=== PATIENT | female | born 1980 | race Caucasian/White ===

== ENCOUNTER 2016-11-26 12:05 | Emergency (ER) | payer MEDICAID, OTHER ==
[~2016-11-26 12:05] MED LIST: ANTIBIOTIC PO; COLA100C PO; HYDR-3713 PO; KLON0.5T PO; PERCOCET PO; TYLE325T5 PO
[2016-11-26] MEDS ORDERED: KETOROLAC 30 MG/ML VIAL (J1885) As Ordered ONE (13:37)
--- NOTE | 2016-11-26 14:55 | REP ---
THORACIC SPINE SERIES: Three views. HISTORY: Bony tenderness. FINDINGS: Thoracic vertebral body heights are preserved. Alignment is normal. No fracture or collapse is seen. Disc spaces are maintained. Paravertebral soft tissues are unremarkable. IMPRESSION: Negative thoracic spine series. Signed by Duglas Kim MD 11/26/2016 03:10 P
--- NOTE | 2016-11-26 14:55 | REP ---
RIGHT SHOULDER: Three views. HISTORY: Bony tenderness. FINDINGS: Three views of the right shoulder demonstrate normal alignment of the glenohumeral and acromioclavicular joints. No fracture or subluxation is seen. IMPRESSION: Negative right shoulder views. Signed by Duglas Kim MD 11/26/2016 03:10 P
--- NOTE | 2016-11-26 15:04 | EDDOCDS ---
Physician Documentation [facility] Name: Ifeoma Cuellar Age: 36 yrs Sex: Female : 1980 Arrival Date: 11/26/2016 Time: 12:05 Bed PR Private MD: Unknown, Family Dr Disposition: 11/26/16 14:38 Discharged to Home/Self Care. Impression: Dorsalgia - Acute, Unspecified sprain of right shoulder joint. - Condition is Stable. - Discharge Instructions: Shoulder Pain, Wirw-pe-Uyxc, Back Pain, Adult, Fsfl-vy-[id number]. - Prescriptions for Mobic 7.5 mg Oral Tablet - take 1 tablet by ORAL route once daily take with food; 20 tablet. Prednisone 20 mg Oral Tablet - take 3 tablet by ORAL route once daily for 5 days; 15 tablet. Zanaflex 4 mg Oral Tablet - take 1 tablet by ORAL route At bedtime As needed May cause drowsiness, do not take while driving/operating heavy machinery.; 20 tablet. - Medication Reconciliation, Local Pharmacy Hours, Referral List Call for Appointment form. - Follow up: [facility]; When: Call to arrange an appointment; Reason: Further diagnostic work-up, Recheck today's complaints, Continuance of care. - Problem is new. - Symptoms have improved. Historical: - Allergies: no known allergies; - Home Meds: 1. none - PMHx: Kidney stones; - PSHx: Ureteral Stents (September 02, 2014); Lithotripsy (September 02, 2014); D & C(June 2015); - Social history: Smoking status: Patient states was never smoker of tobacco. No barriers to communication noted, The patient speaks fluent Gibraltarian, Speaks appropriately for age. - Family history: Not pertinent. - : The pt / caregiver states he / she is not on anticoagulants. Home medication list is obtained from the patient. - Exposure Risk Screening:: None identified. 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 5 in. (165.10 cm) (R); Pain 6/10; 14:34 Pain 5/10; jf3 15:00 BP 123 / 69; Pulse 65; Resp 16; Temp 98.2(O); Pulse Ox 97% on R/A; Pain 5/10; jf3 12:06 Body Mass Index 26.63 (72.57 kg, 165.10 cm) rs6 MDM: 13:33 ketorolac 60 mg IM once ordered. ef1 13:33 Ice Pack ordered. ef1 13:34 Spine, Thoracic 3 Views Ordered. EDMS 13:34 Shoulder, Complete Ordered. EDMS 13:37 Financial registration complete. lg 13:58 [facility] Payment Agreement was scanned into [employer] and attached to record. lg Administered Medications: 13:42 Drug: ketorolac 60 mg [ketorolac 30 mg/mL (1 mL) injection solution (2 mL)] Route: IM; jf3 Site: right gluteus; 14:34 Follow up: Pain 5/10 Adult; Response: Pain is decreased jf3 Signatures: Dispatcher [employer] EDMS Kiley Miller, RN RN srm Pio Cheung, Reg Reg lg Katrin Orozco, PAAspen PAAspen ef1 Nasir Hemphill RN RN jf3 The chart was reviewed and I authenticate all verbal orders and agree with the evaluation and treatment provided.Attachments: 13:58 [facility] Payment Agreement lg MTDD
--- NOTE | 2016-11-26 15:04 | EDDOCDS ---
Nurse's Notes [facility] Name: Ifeoma Cuellar Age: 36 yrs Sex: Female : 1980 Arrival Date: 11/26/2016 Time: 12:05 Bed PR Private MD: Unknown, Family Dr Diagnosis: Dorsalgia-Acute;Unspecified sprain of right shoulder joint Presentation: 11/26 12:18 Presenting complaint: Patient states: neck and shoulder pain for months. bilateral neck srm pain. numbness to left arm but pain to right. symptoms for minths. Risk Factors No acute neurological deficit is noted. Adult Sepsis Screening: The patient does not have new or worsening altered mentation. Patient's respiratory rate is less than 22. Systolic blood pressure is greater than 100. Patient has a qSOFA score of 0- Negative Sepsis Screen. Suicide/Homicide risk assessment- the patient denies having any suicidal and/or homicidal ideations and does not present with any other emotional, behavioral or mental health complaints. Status: Patient is not a breeder hen service technician or dependent. Transition of care: patient was not received from another setting of care. 12:18 Acuity: DAYA Level 4 srm 12:18 Method Of Arrival: Walkin/Carried/Asstd srm Triage Assessment: 12:20 General: Appears in no apparent distress, Behavior is appropriate for age, cooperative. srm Pain: Pain currently is 7 out of 10 on a pain scale. HIV screening NA for this visit Offered previously. Musculoskeletal: Reports bilateral neck pain. 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 none - PMHx: Kidney stones; - PSHx: Ureteral Stents (September 02, 2014); Lithotripsy (September 02, 2014); D & C(June 2015); - Social history: Smoking status: Patient states was never smoker of tobacco. No barriers to communication noted, The patient speaks fluent Hebrew, Speaks appropriately for age. - Family history: Not pertinent. - : The pt / caregiver states he / she is not on anticoagulants. Home medication list is obtained from the patient. - Exposure Risk Screening:: None identified. Screenin:05 Screening information is obtained from the patient. Fall risk: No risks identified. jf3 Assistance ADL's: requires no assistance with activities of daily living. Abuse/DV Screen: The patient / caregiver reports he/she is: not in a situation that causes fear, pain or injury. Nutritional screening: No deficits noted. Advance Directives: Currently, there is no health care proxy. There is no active DNR order. home support is adequate. Assessment: 13:05 General: Appears in no apparent distress, comfortable, Behavior is cooperative. jf3 General: pt states pain in right shoulder for approx 2 months. woke up today, stretched arms and felt large pop in left shoulder and is now limited in movement of left shoulder and neck. Pain: Location: left shoulder, right shoulder, right neck Pain currently is 7 out of 10 on a pain scale. Quality of pain is described as aching, pulling. Neurological: Level of Consciousness is awake, alert, Oriented to person, place, time. Neurological: Reports occasional numbness in right arm and hand, denies any at this time. Cardiovascular: Capillary refill < 3 seconds Chest pain is denied. Respiratory: Airway is patent Respiratory effort is even, unlabored, Respiratory pattern is regular, symmetrical, Denies shortness of breath at rest. Derm: Skin is pink, warm & dry. 15:00 General: Appears in no apparent distress, comfortable, Behavior is cooperative. Pain: jf3 Pain currently is 5 out of 10 on a pain scale. Neurological: Level of Consciousness is awake, alert, Oriented to person, place, time. Cardiovascular: Capillary refill < 3 seconds Chest pain is denied. Respiratory: Airway is patent Respiratory effort is even, unlabored, Respiratory pattern is regular, symmetrical. Derm: Skin is pink, warm & dry. Vital Signs: 12:06 BP 109 / 66 RA Sitting (auto/reg); Pulse 74; Resp 16; Temp 98.6(O); Pulse Ox 99% on rs6 R/A; Weight 72.57 kg (R); Height 5 ft. 5 in. (165.10 cm) (R); Pain 6/10; 14:34 Pain 5/10; jf3 15:00 BP 123 / 69; Pulse 65; Resp 16; Temp 98.2(O); Pulse Ox 97% on R/A; Pain 5/10; jf3 12:06 Body Mass Index 26.63 (72.57 kg, 165.10 cm) rs6 Vitals: 12:06 Log In Time: November 26, 2016 at 12:06. rs6 ED Course: 12:06 Patient visited by Alicia Colón PCA. rs6 12:06 Unknown, Family is Private Physician. rs6 12:06 Patient moved to Waiting rs6 12:07 Patient visited by Alicia Colón PCA. rs6 12:07 Patient moved to Pre RCE rs6 12:19 Triage Initiated srm 13:05 Patient moved to Triage 2 jf3 13:05 The patient / caregiver is instructed regarding the plan of care and ED course. jf3 13:09 Patient visited by Nasir Hemphill RN. jf3 13:14 Katrin Orozco PA-C is PHCP. ef1 13:14 Elyse Valentin MD is Attending Physician. ef1 13:26 Patient visited by Katrin Orozco PA-C. ef1 13:42 Patient moved to TR2 jf3 13:58 [facility] Payment Agreement was scanned into [employer] and attached to record. lg 14:05 Patient visited by Katrin Orozco PA-C. ef1 14:36 Patient visited by Katrin Orozco PA-C. ef1 14:38 [facility]. ef1 14:48 Patient moved to PR1 / 25 kr3 15:00 No IV's were initiated during this patient's visit. No procedures done that require jf3 assistance. Administered Medications: 13:42 Drug: ketorolac 60 mg [ketorolac 30 mg/mL (1 mL) injection solution (2 mL)] Route: IM; jf3 Site: right gluteus; 14:34 Follow up: Pain 5/10 Adult; Response: Pain is decreased jf3 Order Results: There are currently no results for this order. Outcome: 14:38 Discharge ordered by Provider. ef1 15:03 Discharge Assessment: Patient awake, alert and oriented x 3. No cognitive and/or jf3 functional deficits noted. Patient verbalized understanding of disposition instructions. patient administered narcotics - no. The following High Risk Discharge criteria are identified: None. Discharged to home ambulatory, with significant other. Condition: good. Discharge instructions given to patient, significant other, Instructed on discharge instructions, follow up and referral plans. medication usage, no driving heavy equipment, Demonstrated understanding of instructions, medications, Pt was receptive of discharge instructions/ teaching. No special radiology studies were completed. Property :Personal belongings accompany Pt. 15:03 Patient left the ED. jf3 Signatures: Kiley Miller, RN RN Pio Rhodes, [facility] lg Carol Rich,RN RN kr3 Katrin Orozco, PA-C PA-C ef1 Alicia Colón, LEGAL PRACTICE MANAGER LEGAL PRACTICE MANAGER rs6 Nasir Hemphill,VIVIAN RN jf3 MTDD
--- NOTE | 2016-11-28 16:05 | EDDOCDS ---
Physician Documentation [facility] Name: Ifeoma Cuellar Age: 36 yrs Sex: Female : 1980 Arrival Date: 11/26/2016 Time: 12:05 Bed PR Private MD: Unknown, Family Dr Disposition: 11/26/16 14:38 Discharged to Home/Self Care. Impression: Dorsalgia - Acute, Unspecified sprain of right shoulder joint. - Condition is Stable. - Discharge Instructions: Shoulder Pain, [id number]-Fkfw, Back Pain, Adult, Azls-hf-Alnm. - Prescriptions for Mobic 7.5 mg Oral Tablet - take 1 tablet by ORAL route once daily take with food; 20 tablet. Prednisone 20 mg Oral Tablet - take 3 tablet by ORAL route once daily for 5 days; 15 tablet. Zanaflex 4 mg Oral Tablet - take 1 tablet by ORAL route At bedtime As needed May cause drowsiness, do not take while driving/operating heavy machinery.; 20 tablet. - Medication Reconciliation, Local Pharmacy Hours, Referral List Call for Appointment form. - Follow up: [facility]; When: Call to arrange an appointment; Reason: Further diagnostic work-up, Recheck today's complaints, Continuance of care. - Problem is new. - Symptoms have improved. Historical: - Allergies: no known allergies; - Home Meds: 1. none - PMHx: Kidney stones; - PSHx: Ureteral Stents (September 02, 2014); Lithotripsy (September 02, 2014); D & C(June 2015); - Social history: Smoking status: Patient states was never smoker of tobacco. No barriers to communication noted, The patient speaks fluent Ugandan, Speaks appropriately for age. - Family history: Not pertinent. - : The pt / caregiver states he / she is not on anticoagulants. Home medication list is obtained from the patient. - Exposure Risk Screening:: None identified. 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 5 in. (165.10 cm) (R); Pain 6/10; 14:34 Pain 5/10; jf3 15:00 BP 123 / 69; Pulse 65; Resp 16; Temp 98.2(O); Pulse Ox 97% on R/A; Pain 5/10; jf3 12:06 Body Mass Index 26.63 (72.57 kg, 165.10 cm) rs6 MDM: 13:33 ketorolac 60 mg IM once ordered. ef1 13:33 Ice Pack ordered. ef1 13:34 Spine, Thoracic 3 Views Ordered. EDMS 13:34 Shoulder, Complete Ordered. EDMS 13:37 Financial registration complete. lg 13:58 [facility] Payment Agreement was scanned into [employer] and attached to record. lg 15:51 T-Sheet-- Draft Copy was scanned into [employer] and attached to record. gb 15:51 Radiology Report was scanned into [employer] and attached to record. gb Administered Medications: 13:42 Drug: ketorolac 60 mg [ketorolac 30 mg/mL (1 mL) injection solution (2 mL)] Route: IM; jf3 Site: right gluteus; 14:34 Follow up: Pain 5/10 Adult; Response: Pain is decreased jf3 Signatures: Dispatcher [employer] EDMS Kiley Miller, VIVIAN [place] srm Suzi Huerta, Reg Reg gb Pio Cheung, Reg Reg lg Katrin Orozco, PA-C PA-C ef1 Nasir Hemphill,VIVIAN RN jf3 The chart was reviewed and I authenticate all verbal orders and agree with the evaluation and treatment provided.Attachments: 13:58 [facility] Payment Agreement lg 15:51 T-Sheet-- Draft Copy gb Chart Complete MTDD
--- NOTE | 2016-11-28 16:05 | EDDOCDS ---
Nurse's Notes [facility] Name: Ifeoma Cuellar Age: 36 yrs Sex: Female : 1980 Arrival Date: 11/26/2016 Time: 12:05 Bed PR Private MD: Unknown, Family Dr Diagnosis: Dorsalgia-Acute;Unspecified sprain of right shoulder joint Presentation: 11/26 12:18 Presenting complaint: Patient states: neck and shoulder pain for months. bilateral neck srm pain. numbness to left arm but pain to right. symptoms for minths. Risk Factors No acute neurological deficit is noted. Adult Sepsis Screening: The patient does not have new or worsening altered mentation. Patient's respiratory rate is less than 22. Systolic blood pressure is greater than 100. Patient has a qSOFA score of 0- Negative Sepsis Screen. Suicide/Homicide risk assessment- the patient denies having any suicidal and/or homicidal ideations and does not present with any other emotional, behavioral or mental health complaints. 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 Transition of care: patient was not received from another setting of care. 12:18 Acuity: DAYA Level 4 srm 12:18 Method Of Arrival: Walkin/Carried/Asstd srm Triage Assessment: 12:20 General: Appears in no apparent distress, Behavior is appropriate for age, cooperative. srm Pain: Pain currently is 7 out of 10 on a pain scale. HIV screening NA for this visit Offered previously. Musculoskeletal: Reports bilateral neck pain. 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 none - PMHx: Kidney stones; - PSHx: Ureteral Stents (September 02, 2014); Lithotripsy (September 02, 2014); D & C(June 2015); - Social history: Smoking status: Patient states was never smoker of tobacco. No barriers to communication noted, The patient speaks fluent Hungarian, Speaks appropriately for age. - Family history: Not pertinent. - : The pt / caregiver states he / she is not on anticoagulants. Home medication list is obtained from the patient. - Exposure Risk Screening:: None identified. Screenin:05 Screening information is obtained from the patient. Fall risk: No risks identified. jf3 Assistance ADL's: requires no assistance with activities of daily living. Abuse/DV Screen: The patient / caregiver reports he/she is: not in a situation that causes fear, pain or injury. Nutritional screening: No deficits noted. Advance Directives: Currently, there is no health care proxy. There is no active DNR order. home support is adequate. Assessment: 13:05 General: Appears in no apparent distress, comfortable, Behavior is cooperative. jf3 General: pt states pain in right shoulder for approx 2 months. woke up today, stretched arms and felt large pop in left shoulder and is now limited in movement of left shoulder and neck. Pain: Location: left shoulder, right shoulder, right neck Pain currently is 7 out of 10 on a pain scale. Quality of pain is described as aching, pulling. Neurological: Level of Consciousness is awake, alert, Oriented to person, place, time. Neurological: Reports occasional numbness in right arm and hand, denies any at this time. Cardiovascular: Capillary refill < 3 seconds Chest pain is denied. Respiratory: Airway is patent Respiratory effort is even, unlabored, Respiratory pattern is regular, symmetrical, Denies shortness of breath at rest. Derm: Skin is pink, warm & dry. 15:00 General: Appears in no apparent distress, comfortable, Behavior is cooperative. Pain: jf3 Pain currently is 5 out of 10 on a pain scale. Neurological: Level of Consciousness is awake, alert, Oriented to person, place, time. Cardiovascular: Capillary refill < 3 seconds Chest pain is denied. Respiratory: Airway is patent Respiratory effort is even, unlabored, Respiratory pattern is regular, symmetrical. Derm: Skin is pink, warm & dry. Vital Signs: 12:06 BP 109 / 66 RA Sitting (auto/reg); Pulse 74; Resp 16; Temp 98.6(O); Pulse Ox 99% on rs6 R/A; Weight 72.57 kg (R); Height 5 ft. 5 in. (165.10 cm) (R); Pain 6/10; 14:34 Pain 5/10; jf3 15:00 BP 123 / 69; Pulse 65; Resp 16; Temp 98.2(O); Pulse Ox 97% on R/A; Pain 5/10; jf3 12:06 Body Mass Index 26.63 (72.57 kg, 165.10 cm) rs6 Vitals: 12:06 Log In Time: November 26, 2016 at 12:06. rs6 ED Course: 12:06 Patient visited by Alicia Colón PCA. rs6 12:06 Unknown, Family is Private Physician. rs6 12:06 Patient moved to Waiting rs6 12:07 Patient visited by Alicia Colón PCA. rs6 12:07 Patient moved to Pre RCE rs6 12:19 Triage Initiated srm 13:05 Patient moved to Triage 2 jf3 13:05 The patient / caregiver is instructed regarding the plan of care and ED course. jf3 13:09 Patient visited by Nasir Hemphill RN. jf3 13:14 Katrin Orozco PA-C is PHCP. ef1 13:14 Elyse Valentin MD is Attending Physician. ef1 13:26 Patient visited by Katrin Orozco PA-C. ef1 13:42 Patient moved to TR2 jf3 13:58 [facility] Payment Agreement was scanned into [employer] and attached to record. lg 14:05 Patient visited by Katrin Orozco PA-C. ef1 14:36 Patient visited by Katrin Orozco PA-C. ef1 14:38 [facility]. ef1 14:48 Patient moved to PR1 / 25 kr3 15:00 No IV's were initiated during this patient's visit. No procedures done that require jf3 assistance. 15:25 Spine, Thoracic 3 Views Returned. EDMS 15:25 Shoulder, Complete Returned. EDMS 15:51 T-Sheet-- Draft Copy was scanned into [employer] and attached to record. gb 15:51 Radiology Report was scanned into [employer] and attached to record. gb Administered Medications: 13:42 Drug: ketorolac 60 mg [ketorolac 30 mg/mL (1 mL) injection solution (2 mL)] Route: IM; jf3 Site: right gluteus; 14:34 Follow up: Pain 5/10 Adult; Response: Pain is decreased jf3 Order Results: Radiology Order: Spine, Thoracic 3 Views Test: Spine, Thoracic 3 Views REASON FOR EXAMINATION: bony tenderness; THORACIC SPINE SERIES: Three views.; ; HISTORY: Bony tenderness.; ; FINDINGS: Thoracic vertebral body heights are preserved. Alignment is normal.; No fracture or collapse is seen. Disc spaces are maintained. Paravertebral soft; tissues are unremarkable.; ; IMPRESSION:; ; Negative thoracic spine series.; ; ; Signed by; Dgulas Kim MD 11/26/2016 03:10 P; Radiology Order: Shoulder, Complete Test: Shoulder, Complete REASON FOR EXAMINATION: bony tenderness; RIGHT SHOULDER: Three views.; ; HISTORY: Bony tenderness.; ; FINDINGS: Three views of the right shoulder demonstrate normal alignment of the; glenohumeral and acromioclavicular joints. No fracture or subluxation is seen.; ; IMPRESSION:; ; Negative right shoulder views.; ; ; Signed by; Duglas Kim MD 11/26/2016 03:10 P; Outcome: 14:38 Discharge ordered by Provider. ef1 15:03 Discharge Assessment: Patient awake, alert and oriented x 3. No cognitive and/or jf3 functional deficits noted. Patient verbalized understanding of disposition instructions. patient administered narcotics - no. The following High Risk Discharge criteria are identified: None. Discharged to home ambulatory, with significant other. Condition: good. Discharge instructions given to patient, significant other, Instructed on discharge instructions, follow up and referral plans. medication usage, no driving heavy equipment, Demonstrated understanding of instructions, medications, Pt was receptive of discharge instructions/ teaching. No special radiology studies were completed. Property :Personal belongings accompany Pt. 15:03 Patient left the ED. jf3 Signatures: Dispatcher [employer] EDMS Kiley Miller, RN RN [facility] Suzi Huerta, Reg Reg gb Pio Cheung, Reg Reg lg Carol Rich,VIVIAN RN [email or web address] Katrin Orozco, PA-C PA-C ef1 Alicia Colón, PERSONAL INVESTMENT ADVISER PERSONAL INVESTMENT ADVISER rs6 Nasir Hemphill,RN RN jf3 Chart Complete MTDD
--- NOTE | 2016-11-28 16:05 | EDDOCDS ---
Physician Documentation [facility] Name: Ifeoma Cuellar Age: 36 yrs Sex: Female : 1980 Arrival Date: 11/26/2016 Time: 12:05 Bed PR Private MD: Unknown, Family Dr Disposition: 11/26/16 14:38 Discharged to Home/Self Care. Impression: Dorsalgia - Acute, Unspecified sprain of right shoulder joint. - Condition is Stable. - Discharge Instructions: Shoulder Pain, [id number], Back Pain, Adult, [id number]. - Prescriptions for Mobic 7.5 mg Oral Tablet - take 1 tablet by ORAL route once daily take with food; 20 tablet. Prednisone 20 mg Oral Tablet - take 3 tablet by ORAL route once daily for 5 days; 15 tablet. Zanaflex 4 mg Oral Tablet - take 1 tablet by ORAL route At bedtime As needed May cause drowsiness, do not take while driving/operating heavy machinery.; 20 tablet. - Medication Reconciliation, Local Pharmacy Hours, Referral List Call for Appointment form. - Follow up: [facility]; When: Call to arrange an appointment; Reason: Further diagnostic work-up, Recheck today's complaints, Continuance of care. - Problem is new. - Symptoms have improved. Historical: - Allergies: no known allergies; - Home Meds: 1. none - PMHx: Kidney stones; - PSHx: Ureteral Stents (September 02, 2014); Lithotripsy (September 02, 2014); D & C(June 2015); - Social history: Smoking status: Patient states was never smoker of tobacco. No barriers to communication noted, The patient speaks fluent [place]serr[place], Speaks appropriately for age. - Family history: Not pertinent. - : The pt / caregiver states he / she is not on anticoagulants. Home medication list is obtained from the patient. - Exposure Risk Screening:: None identified. 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 5 in. (165.10 cm) (R); Pain 6/10; 14:34 Pain 5/10; jf3 15:00 BP 123 / 69; Pulse 65; Resp 16; Temp 98.2(O); Pulse Ox 97% on R/A; Pain 5/10; jf3 12:06 Body Mass Index 26.63 (72.57 kg, 165.10 cm) rs6 MDM: 13:33 ketorolac 60 mg IM once ordered. ef1 13:33 Ice Pack ordered. ef1 13:34 Spine, Thoracic 3 Views Ordered. EDMS 13:34 Shoulder, Complete Ordered. EDMS 13:37 Financial registration complete. lg 13:58 [facility] was scanned into momondo and attached to record. lg 15:51 T-Sheet-- Draft Copy was scanned into momondo and attached to record. gb 15:51 Radiology Report was scanned into momondo and attached to record. gb Administered Medications: 13:42 Drug: ketorolac 60 mg [ketorolac 30 mg/mL (1 mL) injection solution (2 mL)] Route: IM; jf3 Site: right gluteus; 14:34 Follow up: Pain 5/10 Adult; Response: Pain is decreased jf3 Signatures: Dispatcher [employer] EDMS Kiley Miller, VIVIAN PARK srm Suzi Huerta, Reg Reg gb Pio Cheung, Reg Reg lg Katrin Orozco, PA-C PA-C ef1 Nasir Hemphill,VIVIAN RN jf3 The chart was reviewed and I authenticate all verbal orders and agree with the evaluation and treatment provided.Attachments: 13:58 [facility] [place] Agreement lg 15:51 T-Sheet-- Draft Copy gb Chart Complete MTDD
== END 2016-11-26 15:03 | disposition home or self-care (01) ==
LOC: M ED 12:05
DX: S43.401A Unspecified sprain of right shoulder joint, initial encounter (principal); M54.9 Dorsalgia, unspecified; X58.XXXA Exposure to other specified factors, initial encounter; Y92.89 Other specified places as the place of occurrence of the external cause; Y93.89 Activity, other specified; Y99.8 Other external cause status; Z87.442 Personal history of urinary calculi
CPT/HCPCS: 72072; 73030; 96372; 99283; J1885

== ENCOUNTER → 2016-12-15 | Outpatient (CLI) | payer MEDICAID, OTHER ==
--- NOTE | 2016-12-15 10:16 | REP ---
MRI RIGHT SHOULDER WITHOUT CONTRAST: 12/15/2016. Clinical history: Chronic shoulder pain. Rule out rotator cuff tear. Comparison: X-ray 11/26/2016. Technique: Sagittal fat suppressed T2 with axial medic T2 and fat suppressed T2 sequences, coronal T1 and fat suppressed T2. Findings: Coronal images show mild spurring superiorly and inferiorly from the AC joint. This only minimally indents musculotendinous junction rotator cuff with subtle hypertrophy at the joint. There is a small amount of subacromial fluid without subdeltoid bursal fluid. A peripheral acromial spur causes some bursal surface fraying. There is intrasubstance signal in the supraspinatus tendon. Some of it is linear horizontal in the course of the tendon. Other signal abnormality appears in the anterior aspect of the mid substance of the tendon suggesting a partial tear. There is some fluid subjacent to the tendon and musculotendinous junction but above the joint. There is also fluid in the subcoracoid bursa. The subscapularis tendon and muscle are without a tear. Biceps tendon is seated in its groove. No gross evidence of labral tear and the biceps labral complex intact. Infraspinatus and teres minor tendons and muscles are intact. The coracoclavicular and coracohumeral ligaments are intact. The spinal glenoid notch shows no mass. Impression: 1. Findings of significant tendinopathy/tendinosis of the supraspinatus tendon and some fluid along its undersurface near the musculotendinous junction. I do see complete tear with retraction of the tendon, bone bruise or fracture in the humeral head. No subluxation or dislocation or abnormalities of the biceps tendon in biceps labral complex. No labral tear or glenohumeral joint effusion. 2. Subscapularis, infraspinatus and teres minor muscles and tendons grossly intact. 3. Coracoclavicular and coracohumeral ligaments are intact. 4. No mass or fluid collection about the spinal glenoid notch. Signed by Juni Bell MD 12/15/2016 04:40 P
--- NOTE | 2016-12-15 13:09 | REP ---
MR CERVICAL SPINE WITHOUT CONTRAST: HISTORY: Neck pain. A disc bulge is present at the C4-5 level. There is mild effacement of the thecal sac without spinal cord compression. The C4 neural foramina are patent. A small right paracentral and intraforaminal disc protrusion are present at the C5-6 level. There is mild effacement of the thecal sac without spinal cord compression. Bilateral uncinate process hypertrophy is present . There is mild and minimal narrowing of the right and left C5 neural foramina respectfully. There is no other disc bulge or herniation. The remaining neural foramina are patent. The spinal cord is normal in signal intensity. There is no intradural extramedullary lesion. The C5-6 intervertebral disc is decreased in height consistent with disc degeneration. Normal signal intensity is present in the cervical vertebral bodies. There is loss of the normal lordotic curve. IMPRESSION: There is cervical spondylosis at the C4-5 and C5-6 levels without spinal cord compression. Signed by Ernie Clarke MD 12/15/2016 01:10 P
== END ==
LOC: M RAD 08:20
PROVIDERS: ATTEND Orthopaedic Surgery
DX: M54.2 Cervicalgia (principal)

== ENCOUNTER 2017-02-02 21:50 | Emergency (ER) | payer MEDICAID, OTHER ==
[~2017-02-02] VITALS: Ht 165.1 cm; Wt 72.6 kg
[~2017-02-02 21:50] MED LIST changes: -COLA100C PO; +COLA100C3 PO
[2017-02-02] MEDS ORDERED: ONDANSETRON 4MG/2ML VIAL (J2405) IV ONE (23:15)
[2017-02-02] MEDS ORDERED: NS 1,000 ML IV ONE (23:15)
[2017-02-02] MEDS ORDERED: MORPHINE 4 MG/ML 1ML SYRINGE IV PRN (23:15)
[2017-02-02 23:44] LABS: BASO % 0.5 % (0.0-1.0); EOS # 0.2 K/mm3 (0.0-0.50); EOS % 2.5 % (0.0-3.0); LARGE UNSTAINED CELL # 0.1 K/mm3 (0.0-0.4); LARGE UNSTAINED CELL % 1.6 % (0.0-4.0); LYMPH # 2.6 K/mm3 (1.5-4.5); LYMPH % 34.2 % (24.0-44.0); MEAN CORPUSCULAR HEMOGLOBIN 31.4 pg (27.0-33.0); MEAN CORPUSCULAR HGB CONC 35.1 g/dl (32.0-36.5); MEAN CORPUSCULAR VOLUME 89.5 fl (80.0-96.0); MONO # 0.4 K/mm3 (0.0-0.8); MONO % 5.5 % (0.0-5.0); NEUTROPHILS % 55.6 % (36.0-66.0); PLATELET COUNT, AUTOMATED 195 k/mm3 (150-450); RED CELL DISTRIBUTION WIDTH 11.8 % (11.5-14.5); WHITE BLOOD COUNT 7.1 K/mm3 (4.0-10.0)
[2017-02-02 23:52] LABS: CONTROL LINE HCG INT CTR LINE PRESENT
[2017-02-02 23:58] LABS: ALBUMIN 4.1 GM/DL (3.2-5.2); ALBUMIN/GLOBULIN RATIO 1.28 (1.00-1.93); ALKALINE PHOSPHATASE 70 U/L (45-117); ALT/SGPT 20 U/L (12-78); ANION GAP 5 MEQ/L (8-16); AST/SGOT 10 U/L (15-37); BILIRUBIN,DIRECT 0.2 MG/DL (0.0-0.2); BLOOD UREA NITROGEN 20 MG/DL (7-18); CALCIUM LEVEL 8.6 MG/DL (8.5-10.1); CARBON DIOXIDE LEVEL 30 MEQ/L (21-32); CHLORIDE LEVEL 104 MEQ/L (98-107); CREATININE FOR GFR 0.67 MG/DL (0.55-1.02); GLOMERULAR FILTRATION RATE > 60.0 (>60); GLUCOSE, FASTING 89 MG/DL (70-105); POTASSIUM SERUM 3.4 MEQ/L (3.5-5.1); SODIUM LEVEL 139 MEQ/L (136-145); TOTAL PROTEIN 7.3 GM/DL (6.4-8.2)
--- NOTE | 2017-02-03 00:20 | REPUSA ---
CT of the abdomen and pelvis without contrast Clinical statement: Pain. Technique: Multiple axial CT images were obtained from the base of the lungs to the floor of the pelv is utilizing 5 mm axial slices without administration of contrast. Coronal and sagittal reconstructio ns were also obtained. Comparison: 03/10/2016. Findings: Chest: The visualized lung bases are clear. Abdomen: The kidneys are normal in size bilaterally. There is no evidence of hydronephrosis. Tiny pun ctate nonobstructing stones are seen in both kidneys. The liver, spleen, pancreas, gallbladder and ad renal glands are unremarkable. The aorta demonstrates normal caliber and contour. There is no abdomin al lymphadenopathy or ascites. Pelvis: The bowel is unremarkable, with no obstructive or inflammatory changes. The urinary bladder i s within normal limits. There is no pelvic lymphadenopathy or ascites. The other pelvic structures ap pear unremarkable. Bones: There are no suspicious osseous abnormalities seen. Impression: 1. No acute findings to explain the patient's pain. 2. Bilateral nonobstructing nephrolithiasis.
[2017-02-03] MEDS ORDERED: CIPR500T89 PO (00:51)
[2017-02-03] MEDS ORDERED: KETOROLAC 30 MG/ML VIAL (J1885) IV ONE (01:00)
[2017-02-03 01:03] VITALS: BP 98/60
== END 2017-02-03 01:11 | disposition home or self-care (01) ==
LOC: M ED 23:48
DX: N20.0 Calculus of kidney (principal); N39.0 Urinary tract infection, site not specified
CPT/HCPCS: 74176; 80048; 80076; 81001; 83690; 84703; 85025; 87086; 96361; 96374; 96375; 99284; J1885; J2405

== ENCOUNTER → 2017-04-25 | Outpatient (REF) | payer MEDICAID ==
[~2017-04-25] MED LIST changes: +CIPR-249 PO; -COLA100C3 PO; +COLA100C5 PO
[2017-05-02 10:22] LABS: GC Carboxy THC >300 ng/mL (Cutoff=10)
== END ==
LOC: M OUTALCOH 10:08
PROVIDERS: ATTEND Psychiatry & Neurology Psychiatry
DX: F12.10 Cannabis abuse, uncomplicated (principal)

== ENCOUNTER 2019-01-23 14:14 | Day surgery (SDC) | payer MEDICAID, OTHER ==
[~2019-01-23] VITALS: Ht 165.1 cm; Wt 73.2 kg
[2019-01-23] MEDS ORDERED: ONDANSETRON 4MG/2ML VIAL (J2405) IV ONE (15:15)
[2019-01-23] MEDS ORDERED: NS 1,000 ML IV ONE (15:15)
[2019-01-23] MEDS ORDERED: KETOROLAC 30 MG/ML VIAL (J1885) IV ONE (15:15)
[2019-01-23 15:55] LABS: BASO % 0.3 % (0.0-1.0); EOS # 0.1 10^3/uL (0.0-0.50); EOS % 1.3 % (0.0-3.0); HEMATOCRIT 41.5 % (36.0-47.0); HEMOGLOBIN 14.3 g/dl (12.0-15.5); LYMPH # 2.1 10^3/uL (1.5-4.5); LYMPH % 22.6 % (24.0-44.0); MEAN CORPUSCULAR HEMOGLOBIN 31.4 pg (27.0-33.0); MEAN CORPUSCULAR HGB CONC 34.5 g/dl (32.0-36.5); MONO # 0.6 10^3/uL (0.0-0.8); MONO % 6.5 % (0.0-5.0); NEUTROPHILS # 6.4 10^3/uL (1.8-7.7); NEUTROPHILS % 68.9 % (36.0-66.0); PLATELET COUNT, AUTOMATED 230 10^3/uL (150-450); RED BLOOD COUNT 4.56 10^6/uL (4.00-5.40); WHITE BLOOD COUNT 9.2 10^3/uL (4.0-10.0)
[2019-01-23 16:14] LABS: ALBUMIN 4.8 GM/DL (3.2-5.2); ALT/SGPT 18 U/L (12-78); BILIRUBIN,DIRECT 0.2 MG/DL (0.0-0.2); BILIRUBIN,TOTAL 0.8 MG/DL (0.2-1.0); BLOOD UREA NITROGEN 16 MG/DL (7-18); CALCIUM LEVEL 9.7 MG/DL (8.5-10.1); CARBON DIOXIDE LEVEL 29 MEQ/L (21-32); CHLORIDE LEVEL 106 MEQ/L (98-107); CREATININE FOR GFR 0.78 MG/DL (0.55-1.30); GLOMERULAR FILTRATION RATE > 60.0 (>60); GLUCOSE, FASTING 89 MG/DL (70-100); POTASSIUM SERUM 4.5 MEQ/L (3.5-5.1); SODIUM LEVEL 140 MEQ/L (136-145); TOTAL PROTEIN 7.5 GM/DL (6.4-8.2)
--- NOTE | 2019-01-23 16:30 | REP ---
Clinical: Right flank pain. Technique: Real time duggan scale and color evaluation using curved array transducer. Findings: The right kidney demonstrates moderate to severe hydroureteronephrosis with findings to suggest medullary sponge kidney. Right kidney measures 12.2 x 5.9 x 5.0 cm and there is evidence for a 7 mm nonobstructing midpole calculus as well as a 9 mm obstructing calculus in the proximal/mid right ureter. Normal intrarenal vascularity is appreciated; RI = 0.57. The left kidney measures 11.6 x 5.3 x 6.0 cm with suggestions for medullary sponge kidney and no evidence for hydroureteronephrosis, cystic or renal mass lesion. Normal intrarenal vascularity is appreciated; RI = 0.38. Impression: 1. Moderate right-sided obstructive uropathy with a 9 mm obstructing calculus in the proximal/mid right ureter. 7 mm nonobstructing calculus also identified. 2. Evidence for bilateral medullary sponge kidney. Left kidney without hydronephrosis or obvious nephrolithiasis. Electronically Signed by Anthony Browning MD 01/23/2019 04:21 P
[2019-01-23] MEDS ORDERED: fentaNYL 100 MCG/2 ML INJECTION (J3010) As Ordered ONE (17:11)
[2019-01-23] MEDS ORDERED: ONDANSETRON 4MG/2ML VIAL (J2405) As Ordered ONE ×2 (17:11→20:02)
[2019-01-23] MEDS ORDERED: PROPOFOL 200 MG/20 ML VIAL As Ordered ONE (17:11)
[2019-01-23] MEDS ORDERED: ROCURONIUM BROMIDE 50 MG/5 ML VIAL As Ordered ONE (17:11)
[2019-01-23] MEDS ORDERED: GLYCOPYRROLATE INJ 0.2 MG/ML 2 ML VIAL As Ordered ONE (17:11)
[2019-01-23] MEDS ORDERED: LIDOCAINE 2% INJ 100 MG/5 ML SDV (FOR ANES.) As Ordered ONE (17:11)
[2019-01-23] MEDS ORDERED: MIDAZOLAM INJ 2 MG/2 ML VIAL (J2250) As Ordered ONE (17:11)
[2019-01-23] MEDS ORDERED: dexameTHASONE 4 MG/ML 1ML VIAL (J1100) As Ordered ONE ×2 (17:11→17:17)
[2019-01-23] MEDS ORDERED: NEOSTIGMINE 10 MG/10 ML VIAL (J2710) As Ordered ONE (17:11)
[2019-01-23] MEDS ORDERED: ACETAMINOPHEN TAB 650MG DOSE (2X325MG) PO PRN (18:00)
[2019-01-23] MEDS ORDERED: CIPROFLOXACIN/D5W 400 MG/200 ML BAG (J0744) As Ordered ONE (18:18)
[2019-01-23] MEDS ORDERED: CONRAY-60 60% 50ML VIAL (Q9961) As Ordered ONE (18:26)
[2019-01-23] MEDS ORDERED: CIPR-250 PO (19:46)
[2019-01-23] MEDS ORDERED: PYRI1TAB5 PO (19:46)
[2019-01-23] MEDS ORDERED: OXYC1TAB23 PO (19:46)
[2019-01-23] MEDS ORDERED: fentaNYL 100 MCG/2 ML INJECTION (J3010) IV PRN (20:00)
[2019-01-23] MEDS ORDERED: METOCLOPRAMIDE INJ 10MG/2ML VIAL (J2765) IV PRN (20:00)
[2019-01-23] MEDS ORDERED: PERCOCET 5MG/325MG TAB PO PRN (20:00)
[2019-01-23] MEDS ORDERED: ONDANSETRON 4MG/2ML VIAL (J2405) IV PRN (20:00)
[2019-01-23] MEDS ORDERED: LR 1,000 ML IV SCH (20:00)
--- NOTE | 2019-01-23 20:35 | REP ---
Clinical: Stent placement. Technique: AP view of the abdomen and pelvis. Findings: Right ureteral stent in satisfactory position. A 6 mm right intrarenal calculus is identified. Calcifications in the pelvis are nonspecific but likely represent phleboliths. Bowel gas pattern is nonspecific. Skeletal structures are intact. Impression: Right ureteral stent in satisfactory position. 6 mm nonobstructing calculus in the right kidney. Electronically Signed by Anthony Browning MD 01/23/2019 08:27 P
[2019-01-23] MEDS ORDERED: PHENAZOPYRIDINE 100 MG TAB PO ONE (20:45)
[2019-01-23] MEDS ORDERED: DOCUSATE SODIUM 100 MG CAP PO SCH (21:00)
--- NOTE | 2019-01-23 21:14 | HPEPDOC ---
[facility] Medical History & Physical Date of Admission Jan 23, 2019 History and Physical CHIEF COMPLAINT: [right flank pain] HISTORY OF PRESENT ILLNESS: This is a 38 yo female with pmhx recurrent kidney stones s/p multiple procedures who presented to the ed for right flank pain which was getting worse that started today. Patient denied fever, chills, chest pain, sob, hematuria, dysuria. She c./o some nausea as well. ROS all 14 point ROS is negative except for whats listed in HPI PAST MEDICAL HISTORY: 1. [kidney stones]. PAST SURGICAL HISTORY: 1. [lithotrypsy]. 2. [right ureteral stent placement ]. 3. . SOCIAL HISTORY: Marital status: [n]. 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 IV drug use: [n] FAMILY HISTORY: no family hx -per patient ALLERGIES: Please see below. HOME MEDICATIONS: Please see below. Physical exam GEN: NAD, normal weight HEENT: PERRLA, neck supple, EOMI, trachea midline, normal conjunctiva CVS: no chest wall tenderness, normal S1, S2, regular rate and rhythm, no edema, no JVD RESP: no acute distress, LCTAB, no wheezes, rhonchi, or crackles Abd: soft, nontender, nondistended, normal bowel sound, no guarding : no cva tenderness, no suprapubic tenderness MSK : normal strength 5/5, FROM, joint swelling or tenderness, no muscle tenderness Neuro: no focal deficit, CN 2-12 intact Psych: AOA x3, normal mood, good judgement and insight LABORATORY DATA: See below. IMAGING: [ ct Abd and pelvis Impression: 1. Moderate right-sided obstructive uropathy with a 9 mm obstructing calculus in the proximal/mid right ureter. 7 mm nonobstructing calculus also identified. 2. Evidence for bilateral medullary sponge kidney. Left kidney without hydronephrosis or obvious nephrolithiasis.] MICROBIOLOGY: Please see below. ASSESSMENT and plan ?mild uti urologist consulted - will take patient to OR today ns for hydration npo for now c/w cipro dvt ppx full code, from home , no svc Vital Signs Vital Signs Date Time Temp Pulse Resp B/P (MAP) Pulse Ox O2 Delivery O2 Flow Rate FiO2 01/23/19 20:15 97.5 74 18 112/71 (85) 92 01/23/19 17:22 Room Air Laboratory Data Labs 24H Laboratory Tests 2 01/23/19 14:26: Urine Color YELLOW, Urine Appearance CLOUDYH, Urine pH 5.0, Urine Specific [place] 1.018, Urine Protein 1+H, Urine Glucose (UA) NEGATIVE, Urine Ketones NEGATIVE, Urine Blood 3+H, Urine Nitrite NEGATIVE, Urine Bilirubin NEGATIVE, Urine Urobilinogen 0.2, Urine Leukocyte Esterase TRACEH, Urine WBC (Auto) 5H, Urine RBC (Auto) TNTCH, Urine Hyaline Casts (Auto) 2, Urine Bacteria (Auto) 1+H, Urine Squamous Epithelial Cells 20, Urine Mucus (Auto) LARGE, Urine Sperm (Auto) 01/23/19 15:33: Immature Granulocyte % (Auto) 0.4, White Blood Count 9.2, Red Blood Count 4.56, Hemoglobin 14.3, Hematocrit 41.5, Mean Corpuscular Volume 91.0, Mean Corpuscular Hemoglobin 31.4, Mean Corpuscular Hemoglobin Concent 34.5, Red Cell Distribution Width 11.8, Platelet Count 230, Neutrophils (%) (Auto) 68.9H, Lymphocytes (%) (Auto) 22.6L, Monocytes (%) (Auto) 6.5H, Eosinophils (%) (Auto) 1.3, Basophils (%) (Auto) 0.3, Neutrophils # (Auto) 6.4, Lymphocytes # (Auto) 2.1, Monocytes # (Auto) 0.6, Eosinophils # (Auto) 0.1, Basophils # (Auto) 0.0, Nucleated Red Blood Cells % (auto) 0.0, Anion Gap 5L, Glomerular Filtration Rate > 60.0, Calcium Level 9.7, Aspartate Amino Transf (AST/SGOT) 11, Alanine Aminotransferase (ALT/SGPT) 18, Alkaline Phosphatase 68, Total Bilirubin 0.8, Direct Bilirubin 0.2, Total Protein 7.5, Albumin 4.8, Albumin/Globulin Ratio 1.78 CBC/BMP Laboratory Tests 01/23/19 15:33 Red Blood Count 4.56, Mean Corpuscular Volume 91.0, Mean Corpuscular Hemoglobin 31.4, Mean Corpuscular Hemoglobin Concent 34.5, Red Cell Distribution Width 11.8 , Neutrophils (%) (Auto) 68.9 H, Lymphocytes (%) (Auto) 22.6 L, Monocytes (%) (Auto) 6.5 H, Eosinophils (%) (Auto) 1.3, Basophils (%) (Auto) 0.3, Neutrophils # (Auto) 6.4, Lymphocytes # (Auto) 2.1, Monocytes # (Auto) 0.6, Eosinophils # (Auto) 0.1, Basophils # (Auto) 0.0 Microbiology Microbiology 01/23/19 Urine Culture, Received Pending Home Medications Scheduled Ciprofloxacin HCl (Cipro) 250 Mg Tab, 250 MG PO BID Phenazopyridine HCl (Pyridium) 200 Mg Tab, 1 TAB PO TID for urinary discomfort Allergies Coded Allergies: No Known Allergies (Verified , 03/12/09) OLIVIER JOYNER MD Jan 23, 2019 21:14
[2019-01-23 21:30] VITALS: BP 127/73
[2019-01-24] MEDS ORDERED: METAL LOCK LOOP XX ONE (04:25)
[2019-01-24] MEDS ORDERED: CIPROFLOXACIN 400 MG in APPROPRIATE DILUENT 1 EA IV SCH (06:00)
--- NOTE | 2019-01-24 08:26 | RO ---
DATE OF PROCEDURE: 01/23/2019 PREPROCEDURE DIAGNOSIS: Mid to upper right ureteral calculus. POSTPROCEDURE DIAGNOSIS: Right renal calculus. PROCEDURE PERFORMED: Cystoscopy, right ureteroscopy with basketing of some stone fragments and manipulation of stone into renal pelvis with double J stent placement. SURGEON: Jone Mackey MD SUGGESTION CLERK: ANESTHESIA: General via LMA. DESCRIPTION OF PROCEDURE: The patient was brought to the operating room and placed on the operating room table in supine position. After induction of adequate anesthesia, the patient was placed in dorsal lithotomy position. The lower abdomen and genitalia were prepped and draped in the usual sterile manner. A cystoscopy was performed using a rigid #21 Irish cystoscope sheath and 30 and 70 degree lenses. The bladder was free of any stones, clots or tumors. The ureteral orifices were normal in location and configuration with clear efflux of urine from both. No stones, clots or tumors were noted within the bladder. A wire was passed up the right ureteral orifice, which was rather agape. The rigid ureteroscope was passed alongside the wire without any difficulty. The ureter was inspected to the level of the mid ureter with the shorter instrument and no stone was encountered. Therefore, this instrument was removed under direct vision and a long semi-rigid ureteroscope was passed alongside the wire and once again no stone was encountered. There was an area of edema in the ureter at the level of the mid to upper ureter. Because no stone was encountered all the way up to the ureteropelvic junction, a second wire was passed through the rigid instrument and the flexible ureteroscope was passed over the wire into the renal pelvis where a few small stone fragments were identified, as well as the larger stone. The small fragments were basketed and removed. The larger stone could not be easily isolated to use a laser fiber and therefore basket removal was attempted. The stone was engaged in the basket but was too large to remove intact. Decision was made at this point instead to simply take the basket apart, leave the stone in the ureter and stent it for Extracorporeal shock wave lithotripsy (ESWL) in the future. This is exactly what was carried out. The instrument was removed under direct vision with the ureter being inspected and found to be perfectly intact. The cystoscope sheath was then backloaded over the wire and a #6 Irish [place] stent passed over the wire into the renal pelvis. The wire was removed with the stent remaining in good position. The bladder was decompressed with the cystoscope sheath and the procedure terminated. The patient tolerated the procedure well. He was transported in stable condition to recovery.
[2019-01-28] MEDS ORDERED: OXYB5TAB10 PO (15:56)
[2019-01-28] MEDS ORDERED: OXYC1TAB23 PO (15:56)
[2019-01-30 14:36] LABS: CA Oxalate Dihy 20 % (.); Ca Ox Monohydrate 35 % (.); Size 4x3x2 mm (.)
== END 2019-01-23 21:30 | disposition home or self-care (01) ==
LOC: M ED 14:14 → UNDOADMIN 17:55 → M ED INP 17:55 → M SDC 18:20 → UNDODISIN 21:30 → M SDC 21:30
PROVIDERS: ATTEND Internal Medicine
PROC: 0T768DZ Dilation of Right Ureter with Intraluminal Device, Via Natural or Artificial Opening Endoscopic (ICD-10-PCS; 2019-01-23)
PROC: 0TC08ZZ Extirpation of Matter from Right Kidney, Via Natural or Artificial Opening Endoscopic (ICD-10-PCS; principal; 2019-01-23 17:30)
DX: N20.0 Calculus of kidney (principal); N20.1 Calculus of ureter; Z79.899 Other long term (current) drug therapy
CPT/HCPCS: 36415; 52332; 52352; 74018; 76775; 80048; 80076; 81001; 81025; 82360; 85025; 87086; 88300; 99284; C1769; C2617; J0744; J1100; J1885; J2250; J2405; J2710; J3010

== ENCOUNTER → 2019-01-24 | Outpatient (CLI) | payer OTHER ==
[~2019-01-24] MED LIST changes: +CIPR-250 PO; +OXYC1TAB23 PO; +PYRI1TAB5 PO
[2019-01-24 17:48] LABS: INR 1.06; PROTHROMBIN TIME 13.9 SECONDS (12.1-14.4)
[2019-01-24 17:49] LABS: PARTIAL THROMBOPLASTIN TIME 29.4 SECONDS (25.4-37.6)
== END ==
LOC: M SMT 15:17
PROVIDERS: ATTEND Nurse Practitioner Family
DX: Z01.812 Encounter for preprocedural laboratory examination (principal); N20.0 Calculus of kidney

== ENCOUNTER 2019-01-30 06:24 | Day surgery (SDC) | payer OTHER ==
[~2019-01-30] VITALS: Ht 165.1 cm; Wt 75.3 kg
[~2019-01-30 06:24] MED LIST changes: +OXYB5TAB10 PO
[2019-01-30] MEDS ORDERED: LR 1,000 ML IV SCH ×2 (06:45→09:45)
[2019-01-30 07:12] LABS: URINE PREG TEST NEGATIVE (NEGATIVE)
--- NOTE | 2019-01-30 07:13 | REP ---
Clinical: Kidney stone. Technique: Single supine view of the abdomen and pelvis. Comparison: 01/23/2019. Findings: Right ureteral stent in satisfactory position and there is evidence for a 6.5 mm calculus overlying the renal pelvis. Smaller intrarenal calculi cannot be excluded. Calcifications in the pelvis remains stable and likely represent phleboliths. Bowel gas pattern is nonspecific. Skeletal structures are intact. Impression: Right ureteral stent in satisfactory position with 6.5 mm right renal calculus. Electronically Signed by Anthony Browning MD 01/30/2019 07:04 A
[2019-01-30] MEDS ORDERED: MIDAZOLAM INJ 2 MG/2 ML VIAL (J2250) As Ordered ONE (07:56)
[2019-01-30] MEDS ORDERED: PROPOFOL 500 MG/50 ML VIAL As Ordered ONE (07:56)
[2019-01-30] MEDS ORDERED: fentaNYL 100 MCG/2 ML INJECTION (J3010) As Ordered ONE (07:57)
--- NOTE | 2019-01-30 09:03 | ROOPDOC ---
[facility] Report Of Operation Report of Operation DATE OF PROCEDURE: 01/30/19 PREPROCEDURE DIAGNOSIS: Right kidney stone. POSTPROCEDURE DIAGNOSIS: Right kidney stone. PROCEDURE: Right extracorporeal shock wave lithotripsy. SURGEON: Tj Luevano MD CLINICAL WRITER: None ANESTHESIA: Monitored anesthesia care (MAC). OPERATIVE INDICATIONS: This is a 38-year-old female who was brought to the operating room recently for an obstructing right ureteral stone and a nonobstructing 6-8mm right kidney stone. The ureteral stone was removed but the kidney stone could not be removed at that time. It was recommended that we bring her to the operating room today for the above procedure to treat her remaining stone. DESCRIPTION OF PROCEDURE: The patient was brought to the operating room and MAC anesthesia was administered. Prophylactic antibiotics were infused. She was then placed in the supine position in preparation for right-sided extracorporeal shock wave lithotripsy. Fluoroscopy was utilized to monitor stone position and fragmentation throughout the procedure. The stone could be seen inside the proximal curl of the previously placed stent. Shock waves were then delivered to the right-sided kidney stone ungated. There were no arrhythmias. After 2500 shocks, the procedure was concluded. The stone appeared to fragment well. The patient was then awakened from anesthesia and transported to recovery room in stable condition. ESTIMATED BLOOD LOSS: 0 mL. COMPLICATIONS: None. SPECIMENS: None. PLAN: The patient will followup in the clinic in a few weeks with imaging prior to assess for residual stone burden. If the stone is mostly gone at that point we will remove her stent. TJ LUEVANO MD Jan 30, 2019 09:03
[2019-01-30 09:35] VITALS: BP 99/53
[2019-01-30] MEDS ORDERED: ONDANSETRON 4MG/2ML VIAL (J2405) IV PRN (09:45)
[2019-01-30] MEDS ORDERED: PERCOCET 5MG/325MG TAB PO PRN ×3 (09:45)
== END 2019-01-30 10:01 | disposition home or self-care (01) ==
LOC: M SDC 06:24
PROVIDERS: ATTEND Urology
DX: N20.0 Calculus of kidney (principal); K21.9 Gastro-esophageal reflux disease without esophagitis; M54.2 Cervicalgia; Z87.891 Personal history of nicotine dependence; Z79.899 Other long term (current) drug therapy
CPT/HCPCS: 50590; 74018; 84703; J0690; J2250; J3010

== ENCOUNTER → 2019-02-14 | Outpatient (CLI) | payer OTHER ==
--- NOTE | 2019-02-14 11:49 | REP ---
KUB: Single view. History: Renal stones. Comparison study: January 30, 2019. Findings: A double pigtail ureteral stent is noted in place on the right. There are phleboliths bilaterally in the pelvis. Bowel gas pattern is normal. The recent study showed a calcification in the renal pelvis adjacent to the stent on the right. This is not definitely seen although the area is overlian by bowel gas. There is a calcification superimposed on the lower pole of the left kidney measuring 2-3 mm. Impression: Double pigtail ureteral stent in place on the right. Question upper tract calculi. Electronically Signed by Duglas Kim MD 02/14/2019 04:40 P
== END ==
LOC: M SMT 11:04
PROVIDERS: ATTEND Urology
DX: N20.0 Calculus of kidney (principal); Z96.0 Presence of urogenital implants

== ENCOUNTER → 2019-04-21 | Outpatient (REF) | payer OTHER ==
[2019-04-21 14:46] LABS: HIV 1&2 SCREEN CENTAUR NEGATIVE (NEGATIVE)
[2019-04-21 15:52] LABS: CHLAMYDIA DNA AMPLIFICATION NEGATIVE (NEGATIVE); GC DNA AMPLIFICATION NEGATIVE (NEGATIVE)
== END ==
LOC: M SFHCPLAZ 11:59
PROVIDERS: ATTEND Family Medicine
DX: Z11.3 Encounter for screening for infections with a predominantly sexual mode of transmission (principal)

== ENCOUNTER → 2019-05-05 | Outpatient (CLI) | payer OTHER ==
--- NOTE | 2019-05-05 10:22 | PFTRPT ---
Height: 65.00 Inches Weight: 156.00 Lbs BSA: 1.78 Diagnosis: R06.2 DATE OF PROCEDURE: 05/05/2019 ORDERED BY: Dr. Darcy Ochoa Spirometry: Study of excellent technical quality. Forced vital capacity normal. FEV1 in proportion. Obstructive index is, therefore, normal. Flow Volume Loop: Expiratory limb of the flow volume loop is normal. Lung Volumes: Total lung capacity normal. Residual volume is in proportion. Diffusing Capacity: Diffusing capacity normal. Hemoglobin: No hemoglobin available for correction. Airway Mechanics: Airway resistance and conductance are normal. IMPRESSION: Normal study. MTDD
== END ==
LOC: M CARPUL 09:44
PROVIDERS: ATTEND Family Medicine
DX: R06.2 Wheezing (principal)

== ENCOUNTER → 2019-07-01 | Outpatient (REF) | payer OTHER, MEDICAID ==
[2019-07-01 18:51] LABS: CHLAMYDIA DNA AMPLIFICATION NEGATIVE (NEGATIVE); GC DNA AMPLIFICATION NEGATIVE (NEGATIVE)
[2019-07-04 14:42] LABS: HPV HYBRID CAPTURE II Negative (Negative)
== END ==
LOC: M SFHCPLAZ 15:46
PROVIDERS: ATTEND Family Medicine
DX: Z12.4 Encounter for screening for malignant neoplasm of cervix (principal); Z11.3 Encounter for screening for infections with a predominantly sexual mode of transmission; N89.8 Other specified noninflammatory disorders of vagina

== ENCOUNTER 2020-03-01 11:14 | Emergency (ER) | payer MEDICAID, OTHER ==
[~2020-03-01] VITALS: Ht 165.1 cm; Wt 75.2 kg
[2020-03-01 11:42] LABS: BASO # 0.1 10^3/uL (0.0-0.2); BASO % 0.6 % (0.0-1.0); EOS # 0.2 10^3/uL (0.0-0.5); HEMATOCRIT 44.3 % (36.0-47.0); LYMPH # 2.3 10^3/uL (1.5-5.0); LYMPH % 26.2 % (24.0-44.0); MEAN CORPUSCULAR HEMOGLOBIN 31.3 pg (27.0-33.0); MEAN CORPUSCULAR HGB CONC 33.9 g/dl (32.0-36.5); MEAN CORPUSCULAR VOLUME 92.3 fl (80.0-96.0); MONO # 0.5 10^3/uL (0.0-0.8); MONO % 5.7 % (0.0-5.0); NEUTROPHILS # 5.6 10^3/uL (1.5-8.5); PLATELET COUNT, AUTOMATED 247 10^3/uL (150-450); WHITE BLOOD COUNT 8.6 10^3/uL (4.0-10.0)
[2020-03-01 12:13] LABS: ALBUMIN 4.2 GM/DL (3.2-5.2); BILIRUBIN,DIRECT 0.2 MG/DL (0.0-0.2); BILIRUBIN,TOTAL 0.7 MG/DL (0.2-1.0); TOTAL PROTEIN 7.5 GM/DL (6.4-8.2)
[2020-03-01 13:32] VITALS: BP 119/72
--- NOTE | 2020-03-01 13:39 | REP ---
CHEST, TWO VIEWS: There is no evidence of acute infiltrate. No pleural effusion is seen. The heart is normal in size. The mediastinal silhouette is unremarkable. The visualized osseous structures are intact. IMPRESSION: No acute pulmonary disease. Electronically Signed by Luis Antonio Mcarthur MD 03/01/2020 01:46 P
--- NOTE | 2020-03-01 13:48 | REP ---
REASON FOR EXAM: Right flank pain. All priors were reviewed, the latest of which is dated 02/03/2017. There is no change in the lung bases. There is a stable 3 mm size nodule in the right lower lobe pleural base, which has been stable for years. There are no pleural or pericardial effusions. Limited evaluation of the solid intra-abdominal organs and gallbladder show no gross abnormalities or significant changes from the prior exam. Limited evaluation of the pancreas and adrenal glands show no gross abnormalities or significant changes from the prior exams. There is bilateral nephrolithiasis. There is no obstructive uropathy. There are no cystoliths. There are bilateral pelvic phleboliths status quo. Limited evaluation of the abdominal aorta and paraaortic regions show no gross abnormalities or significant changes from the prior exam. Limited evaluation of the bowel loops and their mesenteries show no gross abnormalities. No free fluid or free air is seen in the abdomen or pelvis. There is no evidence of an intra-abdominal or intrapelvic mass or adenopathy. Bone window technique throughout the examination shows the osseous structures to be stable and intact. IMPRESSION: Nonobstructing bilateral nephroliths. Patient has a history of bilateral nephrolithiasis. There is no evidence of acute intra-abdominal or intrapelvic disease. Findings as described above. Electronically Signed by Miguel Meyers DO 03/01/2020 03:08 P
== END 2020-03-01 13:34 | disposition home or self-care (01) ==
LOC: M ED 11:14
DX: N20.0 Calculus of kidney (principal); K21.9 Gastro-esophageal reflux disease without esophagitis; G43.909 Migraine, unspecified, not intractable, without status migrainosus

== ENCOUNTER → 2021-06-23 | Outpatient (REF) | payer OTHER ==
[2021-06-23 15:36] LABS: APPEARANCE, URINE HAZY (CLEAR); BACTERIA, URINE AUTO 1+ (NEGATIVE); BILIRUBIN, URINE AUTO NEGATIVE (NEGATIVE); BLOOD, URINE BLOOD 2+ (NEGATIVE); COLOR, URINE YELLOW (YELLOW); GLUCOSE, URINE (UA) AUTO NEGATIVE (NEGATIVE); KETONE, URINE AUTO NEGATIVE (NEGATIVE); LEUKOCYTE ESTERASE, URINE AUTO 2+ (NEGATIVE); NITRITE, URINE AUTO NEGATIVE (NEGATIVE); PROTEIN, URINE AUTO NEGATIVE (NEGATIVE); RBC, URINE AUTO 3 /HPF (0-3); SPECIFIC GRAVITY URINE AUTO 1.014 (1.002-1.035); SQUAMOUS EPITHELIAL CELL UR AU 5 /HPF (0-6); UROBILINOGEN, URINE AUTO 0.2 mg/dL (0.0-2.0); WBC, URINE AUTO 1 /HPF (0-3)
== END ==
LOC: M LAB REF 15:02
PROVIDERS: ATTEND Physician Assistant Medical
DX: R10.2 Pelvic and perineal pain (principal)

== ENCOUNTER → 2022-09-26 | Outpatient (REF) | payer OTHER, MEDICAID ==
[2022-09-26 16:57] LABS: BASO # 0.1 10^3/uL (0.0-0.2); EOS # 0.1 10^3/uL (0.0-0.5); EOS % 2.4 % (0.0-3.0); HEMATOCRIT 41.9 % (36.0-47.0); HEMOGLOBIN 13.6 g/dl (12.0-15.5); LYMPH # 1.8 10^3/uL (1.5-5.0); LYMPH % 30.1 % (24.0-44.0); MEAN CORPUSCULAR HEMOGLOBIN 30.9 pg (27.0-33.0); MEAN CORPUSCULAR HGB CONC 32.5 g/dl (32.0-36.5); MEAN CORPUSCULAR VOLUME 95.2 fl (80.0-96.0); MONO # 0.4 10^3/uL (0.0-0.8); MONO % 6.8 % (2.0-8.0); NEUTROPHILS # 3.5 10^3/uL (1.5-8.5); NEUTROPHILS % 59.2 % (36.0-66.0); PLATELET COUNT, AUTOMATED 189 10^3/uL (150-450); WHITE BLOOD COUNT 5.8 10^3/uL (4.0-10.0)
[2022-09-26 17:58] LABS: ALBUMIN 3.8 G/DL (3.2-5.2); ALKALINE PHOSPHATASE 83 U/L (46-116); ALT/SGPT 31 U/L (7.0-40); AST/SGOT 18 U/L (<34); BILIRUBIN,TOTAL 0.8 MG/DL (0.3-1.2); BLOOD UREA NITROGEN 16 MG/DL (9-23); CALCIUM LEVEL 8.8 MG/DL (8.5-10.1); CARBON DIOXIDE LEVEL 28 MMOL/L (20-31); CHLORIDE LEVEL 104 MMOL/L (98-107); CREATININE FOR GFR 0.63 MG/DL (0.55-1.30); GLOMERULAR FILTRATION RATE > 60.0 (>58); GLUCOSE, FASTING 82 MG/DL (60-100); POTASSIUM SERUM 4.4 MMOL/L (3.5-5.1); SODIUM LEVEL 140 MMOL/L (136-145); TOTAL PROTEIN 6.7 G/DL (5.7-8.2)
[2022-09-26 18:02] LABS: THYROID STIMULATING HORMONE 0.369 uIU/ML (0.55-4.78)
[2022-09-26 18:26] LABS: HIV 1&2 SCREEN CENTAUR NEGATIVE (NEGATIVE)
[2022-09-26 18:34] LABS: HEPATITIS C VIRUS ABY INDEX 0.2 INDEX (<0.8)
== END ==
LOC: M LAB REF 16:14
PROVIDERS: ATTEND Physician Assistant
DX: Z11.59 Encounter for screening for other viral diseases (principal); Z11.4 Encounter for screening for human immunodeficiency virus [HIV]; R05.9 Cough, unspecified; F41.1 Generalized anxiety disorder; Z83.3 Family history of diabetes mellitus

== ENCOUNTER → 2022-10-24 | Outpatient (REF) | payer OTHER, MEDICAID | LOC: M LAB REF 17:35 | PROVIDERS: ATTEND Physician Assistant | DX: Z12.4 Encounter for screening for malignant neoplasm of cervix (principal); Z11.3 Encounter for screening for infections with a predominantly sexual mode of transmission ==

== ENCOUNTER → 2023-01-18 | Outpatient (REF) | payer OTHER | LOC: M PLALAB 15:50 | PROVIDERS: ATTEND Nurse Practitioner Family | DX: N89.8 Other specified noninflammatory disorders of vagina (principal) ==

== ENCOUNTER → 2023-11-28 | Outpatient (REF) | payer OTHER ==
[~2023-11-28] MED LIST changes: -OXYB5TAB10 PO; +OXYB5TAB11 PO
[2023-11-28 19:05] LABS: BLOOD UREA NITROGEN 17 MG/DL (9-23); CALCIUM LEVEL 8.5 MG/DL (8.5-10.1); CARBON DIOXIDE LEVEL 26 MMOL/L (20-31); CHLORIDE LEVEL 105 MMOL/L (98-107); CREATININE FOR GFR 0.61 MG/DL (0.55-1.30); GLOMERULAR FILTRATION RATE > 60.0 (>58); GLUCOSE, FASTING 88 MG/DL (60-100); POTASSIUM SERUM 4.9 MMOL/L (3.5-5.1); SODIUM LEVEL 135 MMOL/L (136-145)
[2023-11-28 19:08] LABS: THYROID STIMULATING HORMONE 0.203 uIU/ML (0.55-4.78)
[2023-12-01 15:07] LABS: CANNABINOID, URINE Positive (Cutoff=20); CARBOXY THC (GC/MS) >300 ng/mL (Cutoff=10); CREATININE, URINE 104.4 mg/dL (20.0-300.0)
== END ==
LOC: M LAB REF 16:40
PROVIDERS: ATTEND Physician Assistant
DX: Z79.899 Other long term (current) drug therapy (principal)

== ENCOUNTER → 2023-12-20 | Outpatient (REF) | payer OTHER ==
[~2023-12-20] MED LIST changes: -KLON0.5T PO; +KLON0.5T8 PO; -OXYB5TAB11 PO; +OXYB5TAB14 PO
[2023-12-20 18:56] LABS: FREE T3 2.9 PG/ML (2.3-4.2)
[2023-12-20 18:57] LABS: THYROGLOBULIN ANTIBODY < 15.0 U/ML (<60.0); THYROID PEROXIDASE ANTIBODY 34 U/ML (<60.0)
== END ==
LOC: M LAB REF 16:19
PROVIDERS: ATTEND Physician Assistant
DX: E05.90 Thyrotoxicosis, unspecified without thyrotoxic crisis or storm (principal); Z79.899 Other long term (current) drug therapy

== ENCOUNTER → 2024-03-10 | Outpatient (CLI) | payer OTHER | LOC: M WHC 14:53 | PROVIDERS: ATTEND Nurse Practitioner Family | DX: Z12.31 Encounter for screening mammogram for malignant neoplasm of breast (principal) ==

== ENCOUNTER → 2024-03-10 | Outpatient (REF) | payer OTHER | LOC: M SFHCWAGY 17:16 | PROVIDERS: ATTEND Nurse Practitioner Family | DX: Z12.4 Encounter for screening for malignant neoplasm of cervix (principal) ==

== ENCOUNTER → 2024-03-26 | Outpatient (REF) | payer OTHER | LOC: M LAB REF 16:15 | PROVIDERS: ATTEND Physician Assistant | DX: Z79.899 Other long term (current) drug therapy (principal) ==

== ENCOUNTER → 2024-09-14 | Outpatient (REF) | payer OTHER | LOC: M LAB REF 18:35 | PROVIDERS: ATTEND Physician Assistant Medical | DX: B34.9 Viral infection, unspecified (principal) ==

== ENCOUNTER 2024-11-14 09:37 | Emergency (ER) | payer OTHER ==
[~2024-11-14] VITALS: Ht 165.1 cm; Wt 74.7 kg
[~2024-11-14 09:37] MED LIST changes: -ALPR0.5T3; -LEXA1TAB; -[UNRECOGNIZED DRUG - CODE] PO
[2024-11-14 09:40] VITALS: BP 139/82; TEMP 96.8; O2SAT 98
[2024-11-14] MEDS ORDERED: [UNRECOGNIZED DRUG - CODE] PO (09:50)
[2024-11-14] MEDS ORDERED: ALPR0.5T3 (09:50)
[2024-11-14] MEDS ORDERED: LEXA1TAB (09:50)
[2024-11-14 10:32] LABS: KETONE, URINE AUTO RFX NEGATIVE (NEGATIVE); MUCUS, URINE RFX LARGE (NEGATIVE); NITRITE, URINE AUTO RFX NEGATIVE (NEGATIVE); RBC, URINE AUTO RFX 19 /HPF (0-3); SQUAM EPITHELIAL CELL UR AURFX 23 /HPF (0-6); WBC, URINE AUTO RFX 4 /HPF (0-3)
[2024-11-14 10:33] LABS: LEUKOCYTE ESTERASE UR AUTO RFX TRACE (NEGATIVE)
== END 2024-11-14 11:03 | disposition left against medical advice (07) ==
LOC: M ED 09:37
DX: Z53.21 Procedure and treatment not carried out due to patient leaving prior to being seen by health care provider (principal)

== ENCOUNTER → 2024-11-14 | Outpatient (REF) | payer OTHER ==
[~2024-11-14] MED LIST changes: +ALPR0.5T3; +LEXA1TAB; +[UNRECOGNIZED DRUG - CODE] PO
== END ==
LOC: M LAB REF 16:39
PROVIDERS: ATTEND Nurse Practitioner Family
DX: R30.0 Dysuria (principal)

== ENCOUNTER → 2024-12-03 | Outpatient (CLI) | payer OTHER ==
[~2024-12-03] MED LIST changes: +ALPR0.5T3; +LEXA1TAB; +[UNRECOGNIZED DRUG - CODE] PO
== END ==
LOC: M WHC 13:07
PROVIDERS: ATTEND Nurse Practitioner Family
DX: Z12.31 Encounter for screening mammogram for malignant neoplasm of breast (principal); N60.12 Diffuse cystic mastopathy of left breast